=== PATIENT | female | born 1970 | race Caucasian/White ===

== ENCOUNTER → 2018-12-24 09:39 | Outpatient (CLI) | payer OTHER, SELFPAY ==
[2018-12-24 11:04] LABS: Rubella Antibody IgG 31.7 IU/mL (>15)
== END ==
PROVIDERS: Visit Provider Family Medicine
DX: Z11.59 Encounter for screening for other viral diseases (principal)
CPT/HCPCS: 36415; 86735; 86762; 86765

== ENCOUNTER → 2019-08-03 15:13 | Outpatient (CLI) | payer OTHER, SELFPAY ==
[2019-08-03 15:55] LABS: Influenza A and B by PCR Rapid Negative (Negative)
== END ==
PROVIDERS: Family Provider Psychiatry & Neurology Neurology; Visit Provider Physician Assistant
DX: R68.89 Other general symptoms and signs (principal)
CPT/HCPCS: 87400; 87502

== ENCOUNTER → 2019-08-08 11:00 | Outpatient (CLI) | payer OTHER, SELFPAY ==
--- NOTE | 2019-08-08 | DI.RAD.S_ITS ---
PROCEDURE: XR CHEST 2V INDICATIONS: cough TECHNIQUE: 2 views of the chest were acquired. COMPARISON: None. FINDINGS: Surgical changes and devices: None. Lungs and pleura: Lungs are clear. No pleural effusions or pneumothorax. Mediastinum: Mediastinal contours are normal. Heart size is normal. Bones and chest wall: No suspicious bony abnormalities. Soft tissues appear unremarkable. IMPRESSION: Normal for age, source of current cough symptoms is not seen. Dictated by: Matheus Valerio M.D. on 08/08/2019 at 11:15 Approved by: Matheus Valerio M.D. on 08/08/2019 at 11:15
== END ==
PROVIDERS: Family Provider Psychiatry & Neurology Neurology; Visit Provider Student in an Organized Health Care Education/Training Program
DX: R05 Cough (principal)
CPT/HCPCS: 71046

== ENCOUNTER 2019-10-07 12:44 | Day surgery (SDC) | payer OTHER, SELFPAY ==
[2019-10-07] VITALS (7 sets, daily range): BP systolic 95–105; BP diastolic 57–74; PULSE 58–72; RESP 12–18; TEMP 36.2–36.4; O2SAT 99–100; BMI 22.4
--- NOTE | 2019-10-07 | PATH_ITS ---
[facility] Accession Number: [id number] . 01 Material submitted: . PART A: colon - RANDOM ASCENDING BIOPSIES PART B: cecum - CECAL BIOPSY PART C: hepatic flexure - HEPATIC FLEXURE BIOPSY PART D: colon - TRANSVERSE COLON BIOPSIES PART E: splenic flexure - SPLENIC FLEXURE BIOPSY PART F: colon - DESCENDING COLON BIOPSY PART G: sigmoid colon - SIGMOID BIOPSY PART H: rectum - RECTUM BIOPSY . 02 Diagnosis: A-H: Colon, As Designated, Biopsies: Colonic mucosa with no diagnostic abnormality. Negative for active, chronic, and microscopic colitis. Negative for dysplasia and malignancy. . [facility] 10/08/2019 0957 Local . 02 Electronically signed: . Power Oropeza MD, PhD, Pathologist NPI- [id number] . 01 Gross description: . Part A: RANDOM ASCENDING BIOPSIES: Received in formalin are 3 fragment(s) of strange, soft tissue measuring 0.1 x 0.1 x 0.1 cm to 0.3 x 0.3 x 0.2 cm submitted entirely in 1 cassette(s) Part B: CECAL BIOPSY: Received in formalin is 1 fragment(s) of strange, soft tissue measuring 0.4 x 0.3 x 0.2 cm submitted entirely in 1 cassette(s) Part C: HEPATIC FLEXURE BIOPSY: Received in formalin are 2 fragment(s) of strange, soft tissue measuring 0.2 x 0.2 x 0.2 cm to 0.3 x 0.3 x 0.2 cm submitted entirely in 1 cassette(s) Part D: TRANSVERSE COLON BIOPSIES: Received in formalin are 2 fragment(s) of strange, soft tissue measuring 0.1 x 0.1 x 0.1 cm to 0.5 x 0.2 x 0.2 cm submitted entirely in 1 cassette(s) Part E: SPLENIC FLEXURE BIOPSY: Received in formalin is 1 fragment(s) of strange, soft tissue measuring 0.3 x 0.3 x 0.1 cm submitted entirely in 1 cassette(s) Part F: DESCENDING COLON BIOPSY: Received in formalin are multiple fragment(s) of strange, soft tissue measuring 0.1 x 0.1 x 0.1 cm to 0.4 x 0.2 x 0.2 cm submitted entirely in 1 cassette(s) Part G: SIGMOID BIOPSY: Received in formalin are 3 fragment(s) of strange, soft tissue measuring 0.2 x 0.2 x 0.1 cm to 0.3 x 0.3 x 0.3 cm submitted entirely in 1 cassette(s) Part H: RECTUM BIOPSY: Received in formalin is 1 fragment(s) of strange, soft tissue measuring 0.2 x 0.2 x 0.2 cm submitted entirely in 1 cassette(s) /[facility] [place] 10/07/20192 Local . 02 Pathologist provided ICD-10: R19.7 . 02 CPT . 335168, 904310, 711155, 921303, [id number], 511518, [id number], 279695 Performed at: 01 [facility] [address] [id number] MD Jin Lilly MD Phone: [phone] Performed at: 02 [facility] [place] [address] [place], [place] [id number] MD Ashley Medina MD Phone: [phone]
--- NOTE | 2019-10-07 07:28 | P.HP_ITS ---
History of Present Illness History of Present Illness Date Patient Seen: 10/07/19 Chief complaint: [id number] Narrative: 49 Years Old Female comes in today for consideration of a diagnostic colonoscopy. Endorses a 20-year history of diarrhea, I always have loose stools. Has some fecal incontinence with severe coughing. Cousin age 43, dying from stage IV colon cancer. Has another cousin with celiac disease. Stool culture and O&P on 08/09/2019 were negative. Tissue transglutaminase also negative. CBC on 08/08/2019 revealed a normal hemoglobin and hematocrit. Overall health issues have been otherwise stable, including no major cardiac events for at least 6 weeks. Current Medications (verified): 1) Proair Hfa 108 (90 Base) Mcg/act Inhalation Aerosol Solution (Albuterol Sulfate) .... 2 puffs INH every 4 hours as needed, bronchospasm 2) Ativan 0.5 Mg Oral Tablet (Lorazepam) .... Take .5 to 1 tablet by mouth as needed for agitation or anxiety. 3) Keppra Xr 500 Mg Oral Tablet Extended Release 24 Hour (Levetiracetam) .... Take3 tablets twice per day. 4) Lamictal 25 Mg Oral Tablet (Lamotrigine) .... Take 4 tablets two times per day. 5) Topamax 200 Mg Oral Tablet (Topiramate) .... Take one twice daily 6) [employer] Oral Capsule (Lactobacillus-Inulin) .... one daily - probiotic 7) Benicar 20 Mg Oral Tablet (Olmesartan Medoxomil) .... Take one tablet by mouth every day, for blood pressure control. Allergies (verified): 1) Erythromycin (Critical) Past History Reviewed: Past medical, surgical, family and social histories (including risk factors) reviewed and attested, and no changes required Past Medical History: Diarrhea Lesion of cervix, HPV @ age 26 HYPERTENSION Temporal lobe seizures GRAND MAL SEIZURE SLEEP DISTURBANCE Negative sleep apnea work-up 2018 Past Surgical History: Reviewed history from 09/04/2014 and no changes required: Left knee ACL (1988) Family History: Father: Hypertension, Prostate Cancer Mother: hip replacement Siblings: Breast Cancer, Depression Social History: Reviewed history from 08/09/2018 and no changes required: Marital Status: - 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 (1970) - 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, 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 Children: Deven (2004), Mindi (2006) 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, [employer] Education: 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 Life Changes (2013) - Moved to [place], new job, epilepsy diagnosis, with depression Patient History Family & Social History Tobacco & Substance use: Smoking Status Never smoker Meds Home Medications and Allergies Home Medications Medication Instructions Recorded Confirmed Type lorazepam 0 mg PO Q6HP PRN #0 01/27/17 10/07/19 History olmesartan 20 mg tablet 20 mg PO QDAY #30 tab 07/30/18 10/07/19 Rx lamotrigine 100 mg tablet 100 mg PO BID 12/14/18 10/07/19 History levetiracetam 500 mg 500 mg PO BID #0 12/14/18 10/07/19 History tablet,extended release 24 hr topiramate 100 mg tablet 150 mg PO BID #0 tab 12/14/18 10/07/19 History Allergies Allergy/AdvReac Type Severity Reaction Status Date / Time erythromycin base AdvReac Unknown Vomiting Verified 10/07/19 13:30 as a kid Review of Systems Review of Systems ROS Unobtainable: All systems reviewed & are unremarkable except as noted in HPI and below Exam Narrative Exam Narrative: General: Alert and oriented, appearing stated age and in no acute distress. Head: Head normocephalic/atraumatic. Neck: Neck soft and supple, no lymphadenopathy. Lungs: Clear to auscultation bilaterally, no wheezes, rhonchi or rales. Heart: normal rate and regular rhythm, no murmurs, rubs, gallops, or clicks, Abdomen: abdomen soft and non-tender without masses, organomegaly, or abdominal wall hernias, bowel sounds positive. Psych: alert and cooperative; normal mood and affect; normal attention span and concentration; cognition, remote and recent memory appear to be intact, Assessment & Plan Assessment & Plan narrative: Problem # 1: Diarrhea 1. Colonoscopy with random biopsies The nature and character of the procedure as well as anticipated results were discussed. The possibility of not completing the procedure was also discussed. Possible complications including aspiration pneumonia, bleeding, perforation and reaction to medications either for sedation or preparation and missed lesions were discussed. Questions were answered and proceeding to the colonoscopy was elected. Informed consent signed. Problem # 2: Family history of cancer of colon Please see above.
[2019-10-07] MEDS: HYOSCYAMINE 0.125 MG TABLET PO (13:40)
[2019-10-07] MEDS: SODIUM CHLORIDE 0.9% 1,000 ML 200 ML IV (13:40)
--- NOTE | 2019-10-07 13:47 | PM.OP.ENDO ---
Operative Date/Time/Diagnoses Date of procedure: 10/07/19 Time of procedure: 13:47 Pre-op diagnosis: 1. Diarrhea 2. Family history of colon cancer 3. Screening for colon cancer Post-op diagnosis: other (1. Normal colonoscopy ) Procedure & Clinicians Study performed: Colonoscopy Same procedure as scheduled: Yes Indications: 1. Diarrhea 2. Family history of colon cancer 3. Screening for colon cancer Surgeon: Ligia Torres Procedure Notes SCOAP/Timeout: 13:58 Procedure in detail: ENDOSCOPIST: Ligia Torres MD Sedation RN: Ruma Rodriguez RN Sedation start time: 13:58 Sedation end time:14:33 PROCEDURE: Colonoscopy with random biopsies INDICATIONS: 1. Diarrhea 2. Family history of colon cancer 3. Screening for colon cancer MEDICATION: Levsin 0.125 mg sublingual, incremental doses of Versed and fentanyl until appropriate level sedation achieved. ASA CLASS: 2 CECAL WITHDRAWAL TIME: COMPLICATIONS: None. EXTENT OF PROCEDURE: Cecum. QUALITY OF PREP: Good with portions of liquid stool. PROCEDURE: Prior to insertion of the colonoscope, a digital rectal examination was accomplished with circumferential palpation of the distal rectal mucosa without significant findings being noted. The high-definition pediatric colonoscope was passed into the rectum in the usual fashion and advanced over to the cecum without difficulty. The ileocecal valve, appendiceal stoma, and medial wall all could be inspected and no abnormalities were seen. Random biopsies were taken throughout withdrawal. Some areas of tissue were friable after random biopsy, hemoclip placed x2, cecum and descending, excellent hemostasis noted. ASCENDING COLON: As the colonoscope was withdrawn, care was taken to expose and inspect the haustral folds and no abnormalities were seen. HEPATIC FLEXURE: Normal no polyps, diverticula or other abnormalities. TRANSVERSE COLON: Normal no polyps, diverticula or other abnormalities. DESCENDING COLON: Normal no polyps, diverticula or other abnormalities. SIGMOID COLON: Normal no polyps, diverticula or other abnormalities. RECTUM: Normal. J maneuver was produced. There was no significant perianal disease. The J maneuver was broken. The remainder of the rectum was inspected and there was no external hemorrhoid disease. The scope was withdrawn. IMPRESSION: 1. Normal colonoscopy with some areas of friable tissue. PLAN: 1. Follow-up in clinic status post pathology results. The possibility of a missed lesion including a malignancy has been discussed with the patient previously. Potential alarm symptoms have been discussed and should be reported immediately. Scope withdrawal time: 20 Sedation minutes: 35 Specimen(s): other (random, pancolonic) Complications: none Impression: Normal colonoscopy Post-procedure Recommendations: Will call with biopsy results Follow up: weeks (2) Disposition: PACU
[2019-10-07] MEDS: MIDAZOLAM 5 MG/5 ML VIAL IV (14:02)
[2019-10-07] MEDS: fentaNYL 250 MCG/5 ML INJ IV (14:07)
== END 2019-10-07 15:27 | disposition home or self-care (01) ==
PROVIDERS: PCP Student in an Organized Health Care Education/Training Program; Visit Provider Student in an Organized Health Care Education/Training Program
PROC: 0DJD8ZZ Inspection of Lower Intestinal Tract, Via Natural or Artificial Opening Endoscopic (ICD-10-PCS; CPT 45378; principal; 2019-10-07 14:00)
DX: Z12.11 Encounter for screening for malignant neoplasm of colon (principal); R19.7 Diarrhea, unspecified; K57.30 Diverticulosis of large intestine without perforation or abscess without bleeding
CPT/HCPCS: 45382; 45380; J2250; J3010

== ENCOUNTER → 2020-01-20 08:53 | Outpatient (CLI) | payer OTHER, SELFPAY ==
--- NOTE | 2020-01-20 | DI.US.S_ITS ---
PROCEDURE: US PELVIC COMPLETE INDICATIONS: INTRA-ABDOMINAL PAIN AND SWELLING TECHNIQUE: Real-time scanning was performed of the pelvic organs, with image documentation. Additional endovaginal scanning was necessary due to incomplete visualization of the adnexal and endometrial structures by transabdominal scanning. COMPARISON: [facility], US, US PELVIC COMPLETE, 12/14/2018, 11:04. FINDINGS: Transabdominal scanning: Limited scanning through the kidneys shows no hydronephrosis. No pathologic free abdominal or pelvic fluid. Endovaginal scanning: Uterus: Uterus is normal in size at 5.0 x 3.2 x 4.1 cm. The endometrium measures 2 mm in combined thickness. No endometrial mass or fluid is seen. There is a polypoid mass seen in the cervix measures 1.9 x 1.2 x 1.9 cm in size. No internal vascularity is seen. Ovaries: Ovaries are not visualized on this study. No gross adnexal mass. IMPRESSION: 1. Endometrium is normal in thickness. No endometrial mass or fluid. 1.9 cm polypoid mass within the cervix, which was known to patient, suggesting DINKEY SKINNER correlation. No discrete uterine fibroid is seen. 2. No adnexal mass. Bilateral ovaries are not visualized. Dictated by: Nick Deng M.D. on 01/20/2020 at 15:17 Approved by: Nick Deng M.D. on 01/20/2020 at 15:20
== END ==
PROVIDERS: PCP Student in an Organized Health Care Education/Training Program; Referring Provider Student in an Organized Health Care Education/Training Program; Visit Provider Student in an Organized Health Care Education/Training Program
DX: R19.00 Intra-abdominal and pelvic swelling, mass and lump, unspecified site (principal); N88.9 Noninflammatory disorder of cervix uteri, unspecified
CPT/HCPCS: 76830; 76856

== ENCOUNTER → 2020-08-24 07:50 | Outpatient (CLI) | payer OTHER, SELFPAY ==
--- NOTE | 2020-08-24 | DI.US.S_ITS ---
PROCEDURE: US PELVIC COMPLETE INDICATIONS: RIGHT LOWER QUADRANT PAIN TECHNIQUE: Real-time scanning was performed of the pelvic organs, with image documentation. Additional endovaginal scanning was necessary due to incomplete visualization of the adnexal and endometrial structures by transabdominal scanning. COMPARISON: [facility], , US PELVIC COMPLETE, 01/20/2020, 9:33. FINDINGS: Transabdominal scanning: Limited scanning through the kidneys shows no hydronephrosis. No pathologic free abdominal or pelvic fluid. Endovaginal scanning: Uterus: Uterus is normal in size at 6.8 x 3.5 x 4.3 cm. The endometrium measures 1.1 mm in combined thickness. Endocervical polypoid mass redemonstrated similar to prior examination measuring 1.8 x 1.1 x 1.4 cm compared to 1.9 x 1.2 x 1.9 cm on prior examination. Ovaries: Ovaries are normal bilaterally. No adnexal masses seen. IMPRESSION: Presumed endometrial polyp unchanged from prior examination measuring up to 1.8 cm. Continued sonographic surveillance recommended. Dictated by: Trent Rodriguez [facility] Interpreted: Kianna Haddad MD on 08/24/2020 at 10:20 Approved by: Kianna Haddad MD, PhD on 08/24/2020 at 11:44
== END ==
PROVIDERS: PCP Student in an Organized Health Care Education/Training Program; Referring Provider Student in an Organized Health Care Education/Training Program; Visit Provider Student in an Organized Health Care Education/Training Program
DX: R10.31 Right lower quadrant pain (principal)
CPT/HCPCS: 76856

== ENCOUNTER → 2020-09-16 15:20 | Outpatient (CLI) | payer OTHER, SELFPAY ==
--- NOTE | 2020-09-16 15:22 | DI.RAD.S_ITS ---
PROCEDURE: XR SHOULDER RT MIN 2V INDICATIONS: RIGHT SHOULDER LESIONS TECHNIQUE: 3 views of the shoulder were acquired. COMPARISON: [facility], , SHOULDER MINIMUM 2 VIEW LEFT, 07/27/2014, 14:26. FINDINGS: Bones: No acute fractures or dislocations. No suspicious bony lesions. Visualized ribs appear intact. Mild acromioclavicular joint osteoarthrosis. Soft tissues: No suspicious soft tissue calcifications. IMPRESSION: No acute osseous abnormality. If the symptoms persist with conservative management, consider cross sectional imaging such as CT or MRI for further assessment. Dictated by: Ruben Negrete M.D. on 09/16/2020 at 17:13 Approved by: Ruben Negrete M.D. on 09/16/2020 at 17:14
--- NOTE | 2020-09-16 15:22 | DI.RAD.S_ITS ---
PROCEDURE: XR SHOULDER LT MIN 2V INDICATIONS: SHOULDER PAIN TECHNIQUE: 3 views of the shoulder were acquired. COMPARISON: [facility], , SHOULDER MINIMUM 2 VIEW LEFT, 07/27/2014, 14:26. FINDINGS: Bones: No acute fractures or dislocations. No suspicious bony lesions. Visualized ribs appear intact. Soft tissues: No suspicious soft tissue calcifications. IMPRESSION: No acute osseous abnormality. If the symptoms persist with conservative management, consider cross sectional imaging such as CT or MRI for further assessment. Dictated by: Ruben Negrete M.D. on 09/16/2020 at 17:13 Approved by: Ruben Negrete M.D. on 09/16/2020 at 17:13
== END ==
PROVIDERS: PCP Student in an Organized Health Care Education/Training Program; Referring Provider Student in an Organized Health Care Education/Training Program; Visit Provider Student in an Organized Health Care Education/Training Program
DX: M25.512 Pain in left shoulder (principal); M75.81 Other shoulder lesions, right shoulder; M19.011 Primary osteoarthritis, right shoulder
CPT/HCPCS: 73030

== ENCOUNTER → 2020-09-30 15:54 | Outpatient (CLI) | payer OTHER, SELFPAY ==
--- NOTE | 2020-09-30 | DI.MRI.S_ITS ---
PROCEDURE: MR SHOULDER RT WO CON INDICATIONS: BILATERAL SHOULDER PAIN TECHNIQUE: Noncontrast oblique coronal T2 fast spin echo with fat saturation, oblique sagittal T1 spin echo and T2 fast spin echo with fat saturation, axial T1 spin echo and T2 fast spin echo with fat saturation through the shoulder. COMPARISON: [facility], CR, XR SHOULDER RT MIN 2V, 09/16/2020, 15:15. FINDINGS: Image quality: Excellent. Rotator cuff: There is moderate T2 signal elevation within the mid and posterior supraspinatus tendon at the humeral insertion site. There is superimposed moderate grade bursal surface tearing of the posterior supraspinatus and anterior infraspinatus tendon at the musculotendinous junction measuring roughly 15 mm anteroposterior. The supraspinatus, infraspinatus, and subscapularis tendons otherwise appear intact throughout. Sagittal images demonstrate no muscle atrophy. Bones and bursae: No bone marrow contusions or fractures. Mild acromioclavicular joint degeneration. The acromion demonstrates conventional anatomy, without an os acromiale. No pathologic subacromial-subdeltoid or subcoracoid bursal fluid is present. Capsule and soft tissues: In the absence of intra-articular contrast, the labrum and glenohumeral ligaments appear intact. The long head of the biceps tendon demonstrates normal location and morphology. The rotator interval appears normal, without fibrosis. The coracohumeral ligament is normal in thickness. IMPRESSION: 1. Partial-thickness tearing of the supraspinatus and infraspinatus tendons. No full-thickness rotator cuff tear. 2. Acromioclavicular joint osteoarthritis. Dictated by: Oliver Montelongo M.D. on 09/30/2020 at 16:45 Approved by: Oliver Montelongo M.D. on 09/30/2020 at 16:48
--- NOTE | 2020-09-30 | DI.MRI.S_ITS ---
PROCEDURE: MR SHOULDER LT WO CON INDICATIONS: BILATERAL SHOULDER PAIN TECHNIQUE: Noncontrast oblique coronal T2 fast spin echo with fat saturation, oblique sagittal T1 spin echo and T2 fast spin echo with fat saturation, axial T1 spin echo and T2 fast spin echo with fat saturation through the shoulder. COMPARISON: [facility], MR, MR SHOULDER RT WO CON, 09/30/2020, 16:04. FINDINGS: Image quality: Excellent. Rotator cuff: Tendinosis and low to moderate grade articular and bursal surface partial thickness tear involving distal supraspinatus at its insertion on humeral head is seen extending to musculotendinous junction. Distal infraspinatus and subscapularis tendinosis is also seen. No full-thickness rotator cuff tendon rupture. Sagittal images demonstrate mild supraspinatus muscle atrophy. Bones and bursae: No bone marrow contusions or fractures. Mild to moderate acromioclavicular joint osteoarthritic changes are seen with downward osteophyte formation depressing the musculotendinous junction of supraspinatus. No pathologic subacromial-subdeltoid or subcoracoid bursal fluid is present. Capsule and soft tissues: In the absence of intra-articular contrast, there is suggestion of inferior labral tear from 5-7 o'clock position. The glenohumeral ligaments appear intact. The long head of the biceps tendon demonstrates normal location and morphology. The rotator interval appears normal, without fibrosis. The coracohumeral ligament is normal in thickness. IMPRESSION: 1. Tendinosis and low to moderate grade articular and bursal surface partial thickness tear involving distal supraspinatus extending to musculotendinous junction. Distal infraspinatus and subscapularis tendinosis. No full-thickness rotator cuff tendon rupture. Mild supraspinatus muscle atrophy. 2. Mild to moderate acromioclavicular joint osteoarthritis. 3. Suggestion of inferior labral tear at 5 to 7 o'clock position. Dictated by: Nick Deng M.D. on 09/30/2020 at 17:09 Approved by: Nick Deng M.D. on 09/30/2020 at 17:17
== END ==
PROVIDERS: PCP Student in an Organized Health Care Education/Training Program; Referring Provider Student in an Organized Health Care Education/Training Program; Visit Provider Student in an Organized Health Care Education/Training Program
DX: M25.511 Pain in right shoulder (principal); M25.512 Pain in left shoulder; M75.112 Incomplete rotator cuff tear or rupture of left shoulder, not specified as traumatic; M75.111 Incomplete rotator cuff tear or rupture of right shoulder, not specified as traumatic; M19.011 Primary osteoarthritis, right shoulder; M19.012 Primary osteoarthritis, left shoulder
CPT/HCPCS: 73221

== ENCOUNTER → 2021-02-24 08:03 | Outpatient (CLI) | payer OTHER, SELFPAY ==
[2021-02-24] MEDS: COVID-19 VACC #1, MRNA(MOD) 100 MCG/0.5 ML VIAL IM (08:17)
== END ==
PROVIDERS: PCP Student in an Organized Health Care Education/Training Program; Visit Provider Internal Medicine
DX: Z23 Encounter for immunization (principal)
CPT/HCPCS: 0011A; 91301

== ENCOUNTER → 2021-03-24 08:03 | Outpatient (CLI) | payer OTHER, SELFPAY ==
[2021-03-24] MEDS: COVID-19 VACC #2, MRNA(MOD) 100 MCG/0.5 ML VIAL IM (08:09)
== END ==
PROVIDERS: PCP Student in an Organized Health Care Education/Training Program; Visit Provider Internal Medicine
DX: Z23 Encounter for immunization (principal)
CPT/HCPCS: 0012A; 91301

== ENCOUNTER → 2021-06-06 11:37 | Outpatient (CLI) | payer OTHER, SELFPAY ==
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
== END ==
PROVIDERS: PCP Student in an Organized Health Care Education/Training Program; Referring Provider Physician Assistant; Visit Provider Physician Assistant
DX: R07.81 Pleurodynia (principal)
CPT/HCPCS: 71101

== ENCOUNTER → 2022-03-11 12:20 | Outpatient (CLI) | payer OTHER, SELFPAY ==
[2022-03-11 13:20] LABS: Monotest Negative (Negative)
== END ==
PROVIDERS: PCP Student in an Organized Health Care Education/Training Program; Referring Provider Nurse Practitioner Family; Visit Provider Nurse Practitioner Family
DX: R50.9 Fever, unspecified (principal)
CPT/HCPCS: 36415; 86318

== ENCOUNTER 2022-07-12 13:45 | Outpatient (RCR) | payer OTHER, SELFPAY ==
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
--- NOTE | 2022-07-05 20:44 | PT.OPPOC ---
Physical, Occupational & Speech Therapy At [facility] Current Diagnoses Benign paroxysmal vertigo, bilateral (07/05/22) Visit Care Team Role Provider Type Wyatt Villavicencio MD Primary Care Provider Physician Specialty: Family Practice Address: [address] [place] [address], [id number] Email: [email or web address] Ligia Torres MD Attending Provider Physician Referring Provider Specialty: [facility] Address: [address] [place] [address], [id number] Email: [email or web address] Plan Of Care PT-OP-T Assessment and Plan Start: 07/04/22 15:16 Freq: Status: Active Protocol: Document 07/05/22 09:45 AMB (Rec: 07/07/22 20:43 AMB [id number]) Physical Therapy Assessment Rehab Potential Rehabilitation Potential Good Evaluation Complexity Number of Personal Factors/Comorbidities 1-2 Number of Body Systems Impaired 1-2 Clinical Presentation at Evaluation Stable Impairments Impairments Vestibular Goals Positive Cullen-Hallpike Short Term Goal (STG) Germania will show no dizziness or nystagmus with [place] Hallpike position. STG Duration 4 weeks Dizziness Short Term Goal (STG) Germania will perform all bed mobility without dizziness. 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 LTG Duration 6 weeks Assessment Summary Assessment Germania attends physical therapy with positive R [place]-Hallpike and torsional upbeating nystagmus with first repetition, but not second. She will benefit from continued physical therapy to continue to treat her BPPV as needed. Physical Therapy Plan Frequency and Duration Frequency of Treatment 2x/Week Duration of Treatment 6 weeks Plan of Care Start Date 07/05/22 Plan of Care End Date 08/16/22 Therapeutic Interventions Therapeutic Interventions Balance Training,Neuromuscular Re-education,Therapeutic Activities,Therapeutic Exercises,Vestibular Rehabilitation Next Visit Focus/Plan Next Note Type Treatment Note Next Visit Plan Recheck R Cullen-Hallpike Plan of Care Dates Plan of Care Start Date 07/05/22 Plan of Care End Date 08/16/22 Electronically Signed by: Annamarie Garcia, PT 07/07/22 2044 If you are in agreement with this Plan of Care, please return a signed and dated copy. I have reviewed this Plan of Care and certify that the skilled therapy services above are required to meet the patient?s needs. Physician Signature Date Printed Name and Credentials Clinical Instructor Signature Printed Name and Credentials
--- NOTE | 2022-07-12 14:30 | PT.OTN ---
Current Diagnoses Benign paroxysmal vertigo, bilateral (07/12/22) Physical Therapy Treatment Note PT-OP-A Visit Information Start: 07/04/22 15:16 Freq: Status: Active Protocol: Document 07/12/22 13:48 AMB (Rec: 07/12/22 14:20 AMB [id number]) Out-Patient Physical Therapy Visit Information Visit Information Visit Type Treatment Note Visit Start Time 13:45 Visit Stop Time 14:10 Total Visit Minutes 25 Visit Number 2 PT-OP-B Current Condition Start: 07/04/22 15:16 Freq: Status: Active Protocol: Document 07/05/22 09:43 AMB (Rec: 07/05/22 10:41 AMB [id number]) Current Condition History of Current Condition Onset Date January Current Complaints dizziness History of Current Condition Got a fever in january, has tried [email or web address] videos. At night feels fluid in ears, more so with sinus infection. The same. 10-30 seconds of dizziness. Spinning. Motion sickness- on the boat. Diagnosed with epilepsy, last seizure in 2014. Seeing ENT in a couple weeks. PT-OP-C Subjective Start: 07/04/22 15:16 Freq: Status: Active Protocol: Document 07/12/22 13:48 AMB (Rec: 07/12/22 14:20 AMB [id number]) OP-PT Subjective Patient Comments Patient Comments Germania reports she has not had any dizziness. PT-OP-O Vestibular Start: 07/04/22 15:16 Freq: Status: Active Protocol: Document 07/05/22 09:43 AMB (Rec: 07/05/22 10:41 AMB [id number]) Vestibular Assessment Visual Testing Smooth Pursuits Horizontal WNL Smooth Pursuits Vertical WNL Positional Testing [place]-Hallpike Positive Right,Upbeating,< 60 Seconds Comments Vestibular Comments Positive with first rep, negative with second of the Liliana for R Canalithiasis PT-OP-Q Treatments Start: 07/04/22 15:16 Freq: Status: Active Protocol: Document 07/12/22 13:48 AMB (Rec: 07/12/22 14:20 AMB [id number]) Neuro Re-Education Treatment Other Activities recheck positional testing Comments r/l Bov[place]-hallpike, r/l supine roll, educated pt in return to head turn activities. PT-OP-T Assessment and Plan Start: 07/04/22 15:16 Freq: Status: Active Protocol: Document 07/12/22 13:48 AMB (Rec: 07/12/22 14:20 AMB [id number]) Physical Therapy Assessment Goals Positive [place]-Hallpike Short Term Goal (STG) Germania will show no dizziness or nystagmus with Cullen Hallpike position. STG Duration MET Dizziness Short Term Goal (STG) Germania will perform all bed mobility without dizziness. 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 LTG Duration MET Assessment Summary Assessment Germania did not show any signs of BPPV at her second visit, she has returned [place] hiking[place], reports she can get up at night without reaching for the reese and is ready for discharge, understands it is possible to get BPPV again at a later date and she would need a new referral at that time. Physical Therapy Plan Discharge Physical Therapy Discharge Reasons Goals Met
--- NOTE | 2022-07-12 14:30 | PT.OPDS ---
Current Diagnoses Benign paroxysmal vertigo, bilateral (07/12/22) Visit Care Team Role Provider Type Wyatt Villavicencio MD Primary Care Provider Physician Specialty: [facility] Address: [address] [place], [address] Email: [email or web address] Ligia Torres MD Attending Provider Physician Referring Provider Specialty: [facility] Address: [facility] [place], [address] Email: [email or web address] Visit Number Visit Number 2 Discharge Summary PT-OP-B Current Condition Start: 07/04/22 15:16 Freq: Status: Active Protocol: Document 07/05/22 09:43 AMB (Rec: 07/05/22 10:41 AMB [id number]) Current Condition History of Current Condition Onset Date January Current Complaints dizziness History of Current Condition Got a fever in january, has tried [employer] videos. At night feels fluid in ears, more so with sinus infection. The same. 10-30 seconds of dizziness. Spinning. Motion sickness- on the boat. Diagnosed with epilepsy, last seizure in 2014. Seeing ENT in a couple weeks. PT-OP-C Subjective Start: 07/04/22 15:16 Freq: Status: Active Protocol: Document 07/12/22 13:48 AMB (Rec: 07/12/22 14:20 AMB [id number]) OP-PT Subjective Patient Comments Patient Comments Germania reports she has not had any dizziness. PT-OP-O Vestibular Start: 07/04/22 15:16 Freq: Status: Active Protocol: Document 07/05/22 09:43 AMB (Rec: 07/05/22 10:41 AMB [id number]) Vestibular Assessment Visual Testing Smooth Pursuits Horizontal WNL Smooth Pursuits Vertical WNL Positional Testing [place]-Hallpike Positive Right,Upbeating,< 60 Seconds Comments Vestibular Comments Positive with first rep, negative with second of the Liliana for R Canalithiasis PT-OP-T Assessment and Plan Start: 07/04/22 15:16 Freq: Status: Active Protocol: Document 07/12/22 13:48 AMB (Rec: 08/23/22 14:20 AMB [id number]) Physical Therapy Assessment Goals Positive [place]-Hallpike Short Term Goal (STG) Germania will show no dizziness or nystagmus with [place] Hallpike position. STG Duration MET Dizziness Short Term Goal (STG) Germania will perform all bed mobility without dizziness. 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 LTG Duration MET Assessment Summary Assessment Germania did not show any signs of BPPV at her second visit, she has returned to hiking, [place], reports she can get up at night without reaching for the reese and is ready for discharge, understands it is possible to get BPPV again at a later date and she would need a new referral at that time. Physical Therapy Plan Discharge Physical Therapy Discharge Reasons Goals Met
== END 2022-07-14 09:28 ==
LOC: PHYS 13:45
PROVIDERS: PCP Family Medicine; Referring Provider Student in an Organized Health Care Education/Training Program; Visit Provider Student in an Organized Health Care Education/Training Program
DX: H81.13 Benign paroxysmal vertigo, bilateral (principal)
CPT/HCPCS: 97112; 97161

== ENCOUNTER → 2023-01-20 14:20 | Outpatient (CLI) | payer OTHER, SELFPAY ==
--- NOTE | 2023-01-20 | DI.MG.S_ITS ---
BILATERAL DIGITAL SCREENING MAMMOGRAM 3D/2D WITH CAD: 01/20/2023 CLINICAL: Routine screening. Family history of breast cancer. Comparison is made to exam dated: 08/23/2017 mammogram - [facility]. Both breasts are heterogeneously dense, which may obscure small masses (category c / 51-75% glandular tissue). Current study was also evaluated with a Computer Aided Detection (CAD) system. There is a biopsy clip in the right breast. No significant masses, calcifications, or other findings are seen in either breast. There has been no significant interval change. IMPRESSION: NEGATIVE There is no mammographic evidence of malignancy. A 1 year screening mammogram is recommended. Based on Tyrer-Cuzick model (a risk assessment model), the patient's lifetime risk is 28.1% and her 10 year risk is 7.9%. If a patient has an elevated risk, a more comprehensive evaluation should be considered and/or a referral to a genetic counselor. The [place] [employer], [place] [employer], and NCCN Guidelines advise the consideration of Breast MRI as an adjunct to screening mammography in patients whose Lifetime risk to develop breast cancer is 20% or higher. This exam was interpreted at Station ID: [id number]. NOTE: For mammograms, a report in lay terms will be sent to the patient. Approximately 15% of breast malignancies will not be visualized mammographically. In the management of a palpable breast mass, a negative mammogram must not discourage biopsy of a clinically suspicious lesion. Electronically Signed By: Ilya novak/jen:01/20/2023 16:21:52 letter sent: Normal Exam ACR BI-RADS Category 1: Negative [id number]
== END ==
PROVIDERS: PCP Family Medicine; Referring Provider Family Medicine; Visit Provider Family Medicine
DX: Z12.31 Encounter for screening mammogram for malignant neoplasm of breast (principal); Z80.3 Family history of malignant neoplasm of breast
CPT/HCPCS: 77063; 77067

== ENCOUNTER → 2023-04-12 09:50 | Outpatient (CLI) | payer OTHER, SELFPAY ==
--- NOTE | 2023-04-12 09:51 | DI.RAD.S_ITS ---
PROCEDURE: XR FOOT RT MIN 3V INDICATIONS: foot pain TECHNIQUE: 3 views of the foot were acquired. COMPARISON: None. FINDINGS: Bones: No fractures or dislocations. No suspicious bony lesions. Soft tissues: No tibiotalar joint effusion. Achilles tendon appears normal. IMPRESSION: No evidence acute bony abnormality Dictated by: Cesar Yang M.D. on 04/12/2023 at 11:47 Approved by: Cesar Yang M.D. on 04/12/2023 at 11:47
== END ==
PROVIDERS: PCP Family Medicine; Referring Provider Nurse Practitioner Family; Visit Provider Nurse Practitioner Family
DX: M79.671 Pain in right foot (principal)
CPT/HCPCS: 73630

== ENCOUNTER → 2023-06-05 16:46 | Outpatient (CLI) | payer OTHER, SELFPAY ==
--- NOTE | 2023-06-05 16:50 | DI.RAD.S_ITS ---
PROCEDURE: XR LUMBAR SPINE 2-3V INDICATIONS: Pain in left shoulder TECHNIQUE: 3 views of the lumbar spine were acquired. COMPARISON: None. FINDINGS: Bones: 5 [id number] vertebrae are present. There is normal bony alignment. No vertebral body compression fractures. No suspicious bony lesions. Disc space narrowing degenerative endplate changes are most prominent at the L5-S1 level. There is mild facet hypertrophy. Soft tissues: Overlying bowel gas pattern is normal. Numerous calcifications are seen projecting over the kidneys bilaterally. IMPRESSION: 1. Mild multilevel spondylosis is most notable at the L5-S1 level. 2. Bilateral renal calcifications, suspicious for medullary nephrocalcinosis. Approved by: Ruben Negrete M.D. on 06/06/2023 at 13:01
--- NOTE | 2023-06-05 16:50 | DI.RAD.S_ITS ---
PROCEDURE: XR CERVICAL SPINE 2V OR 3V INDICATIONS: Pain in left shoulder TECHNIQUE: Three views of the cervical spine were acquired. COMPARISON: None. FINDINGS: Bones: No acute fractures or dislocations to the C7 level. The lateral masses of C1 appear intact on the odontoid view. No suspicious bony lesions. Mild disc space narrowing degenerative endplate changes. Mild multilevel uncovertebral joint and facet hypertrophy. Soft tissues: No prevertebral soft tissue swelling. IMPRESSION: Mild multilevel spondylosis. Approved by: Ruben Negrete M.D. on 06/06/2023 at 12:59
== END ==
PROVIDERS: PCP Family Medicine; Referring Provider Family Medicine; Visit Provider Family Medicine
DX: M47.812 Spondylosis without myelopathy or radiculopathy, cervical region (principal); M47.816 Spondylosis without myelopathy or radiculopathy, lumbar region; M47.817 Spondylosis without myelopathy or radiculopathy, lumbosacral region; N28.89 Other specified disorders of kidney and ureter; M54.2 Cervicalgia; M25.512 Pain in left shoulder; M54.9 Dorsalgia, unspecified
CPT/HCPCS: 72040; 72100

== ENCOUNTER → 2023-06-20 17:41 | Outpatient (CLI) | payer OTHER, SELFPAY ==
--- NOTE | 2023-06-20 17:47 | DI.RAD.S_ITS ---
PROCEDURE: XR THORACIC SPINE 3V INDICATIONS: LEFT SHOULDER PAIN TECHNIQUE: 3 views of the thoracic spine were acquired. COMPARISON: [facility], CR, XR CHEST 2V, 08/08/2019, 11:01. FINDINGS: Bones: No fractures or dislocations. No suspicious bony lesions. 12 pairs of ribs are noted, and appear intact where visualized. Mild dextrocurvature centered at the lower thoracic level. Mild multilevel disc height loss with endplate sclerosis and spurring. Soft tissues: No paravertebral stripe thickening. IMPRESSION: Mild multilevel disc degeneration and minimal dextrocurvature. Dictated by: Trent Rodriguez [facility] Interpreted: Jacqueline Lagunas MD on 06/20/2023 at 20:32 Transcribed by: LEILA on 06/20/2023 at 20:33 Approved by: Jacqueline Lagunas M.D. on 06/27/2023 at 8:09
== END ==
PROVIDERS: PCP Family Medicine; Referring Provider Family Medicine; Visit Provider Family Medicine
DX: M51.34 Other intervertebral disc degeneration, thoracic region (principal); M25.512 Pain in left shoulder; M54.2 Cervicalgia; M54.9 Dorsalgia, unspecified; G56.90 Unspecified mononeuropathy of unspecified upper limb
CPT/HCPCS: 72072

== ENCOUNTER 2024-09-18 12:36 | Emergency (ER) | payer OTHER, SELFPAY ==
[2024-09-18] VITALS (10 sets, daily range): BP systolic 103–156; BP diastolic 69–107; PULSE 64–79; RESP 12–20; TEMP 36.9; O2SAT 97–100; BMI 23.7
--- NOTE | 2024-09-18 12:58 | DI.RAD.S_ITS ---
PROCEDURE: XR CHEST 1V INDICATIONS: Shortness of breath TECHNIQUE: One view of the chest was acquired. COMPARISON: None. FINDINGS: Surgical changes and devices: None. Lungs and pleura: Lungs are clear. No pleural effusions or pneumothorax. Mediastinum: Mediastinal contours appear normal. Heart size is normal. Bones and chest wall: No suspicious bony lesions. Overlying soft tissues appear unremarkable. IMPRESSION: No acute cardiopulmonary abnormality is seen. Approved by: Ruben Negrete M.D. on 09/18/2024 at 13:13
--- NOTE | 2024-09-18 13:14 | EKG_ITS ---
[facility] [address] [place] [address] Test Date: 2024-09-18 Pat Name: Germania Islas Department: 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
[2024-09-18 13:26] LABS: Add Manual Diff / Slide Review NO; Basophils Absolute Auto 100 /uL (0-100); Basophils Percent Auto 1.3 % (0-2); Eosinophils Absolute Auto 200 /uL (0-450); Eosinophils Percent Auto 2.2 % (2-4); Hematocrit 42.8 % (36-46); Hemoglobin 14.1 g/dL (12.0-16.0); Lymphocytes Absolute Auto 2100 /uL (1100-4500); Lymphocytes Percent Auto 27.4 % (25-40); Mean Corpuscular HGB Conc 33.1 % (30-36); Mean Corpuscular Hemoglobin 31.9 PG (26-34); Mean Corpuscular Volume 96.5 fL (80-100); Monocytes Absolute Auto 800 /uL (0-900); Monocytes Percent Auto 9.7 % (3-14); Neutrophils Absolute Auto 4600 /uL (1500-7000); Neutrophils Percent Auto 59.4 % (50-75); Platelet Count 207 X10^3/uL (150-400); Red Blood Cell Count 4.43 X10^6/uL (4.0-5.2); White Blood Cell Count 7.8 X10^3/uL (4.5-11.0)
[2024-09-18 13:35] LABS: Prothrombin Time 11.7 SECONDS (9.4-12.5)
[2024-09-18 13:42] LABS: Alanine Aminotransferase 20 IU/L (<35); Albumin 4.5 g/dL (3.5-5.0); Albumin Globulin Ratio 1.7 (1.0-2.8); Alkaline Phosphatase 82 U/L (38-126); Aspartate Aminotransferase 22 IU/L (14-36); BUN Creatinine Ratio 13.8 (6-22); Bilirubin Total 0.4 mg/dL (0.2-1.3); Blood Urea Nitrogen 15 mg/dL (7-17); Calcium 9.6 mg/dL (8.4-10.2); Carbon Dioxide 22 mmol/L (22-32); Chloride 109 mmol/L (98-107); Estimated Glomerular Filt Rate > 60 mL/min (>60); Globulin 2.7 g/dL (1.7-4.1); Glucose 88 mg/dL (70-100); HEMOLYSIS < 15 (0-50); Lactate (Lactic Acid) 0.8 mmol/L (0.7-2.1); Potassium 3.8 mmol/L (3.4-5.1); Sodium 140 mmol/L (137-145); Total Protein 7.2 g/dL (6.3-8.2)
[2024-09-18 13:54] LABS: NT-proBNP (BNP-Adult 18+) 23 pg/mL (<125); Troponin I < 0.012 ng/mL (0.01-0.034)
--- NOTE | 2024-09-18 15:39 | ED.GENADULT ---
HPI - General Adult General Chief complaint: Shortness of Breath/Dyspnea Stated complaint: cardiac workup - sent by [facility] Time Seen by Provider: 09/18/24 15:36 Source: patient, RN notes reviewed and old records reviewed Mode of arrival: Ambulatory Limitations: no limitations History of Present Illness HPI narrative: 54-year-old female history of seizure disorder recent diagnosis of hypertension with complaint of increased shortness of breath particularly with exertion, fatigue, chest discomfort some orthopnea. Patient states no fevers or chills. Has not some nasal congestion and cold cough symptoms recently but states her other symptoms started before this. She states no nausea or vomiting, no issues with bowel movements no issues with urination, no new swelling of extremities. Denies any urinary symptoms. Does have a history of seizure disorder has been well-controlled she was on Topamax, lamotrigine was on Keppra what was changed to lacosamide recently for side effects. She states she also was found to have hypertension on follow up for a foot fracture and was started on olmesartan in the last several months states no other daily medications no recent seizures. Surgical history includes appendectomy, ACL repair remotely. No tobacco, 5-7 alcoholic drinks weekly, no recreational drugs. Allergy to erythromycin. Primary care physician is Dr. Villavicencio. She follows with Neurology through [facility] with Dr. Olguin. Related Data Home Medications Medication Instructions Recorded Confirmed lorazepam 0.5 mg tablet 0 mg PO Q6HP PRN Seizure Activity 01/27/17 09/13/24 ##0 lamotrigine 100 mg tablet 100 mg PO BID 12/14/18 09/13/24 lacosamide 200 mg tablet mg PO 09/18/24 09/18/24 topiramate 50 mg tablet mg PO 09/18/24 09/18/24 Previous Rx's Medication Instructions Recorded olmesartan 20 mg tablet (Benicar) 20 mg PO QDAY #30 tabs 07/30/18 estradiol 0.01% (0.1 mg/gram) 1 g vaginal DAILY #42.5 grams 09/13/24 vaginal cream (Estrace) Allergies Allergy/AdvReac Type Severity Reaction Status Date / Time erythromycin base AdvReac Unknown Vomiting Verified 09/13/24 10:55 as a kid Review of Systems Review of Systems ROS Unobtainable: All systems reviewed & are unremarkable except as noted in HPI and below Patient History Medical History Genitourinary syndrome of menopause Menopausal symptoms Rib pain on left side Surgical History Status post appendectomy Status post knee surgery Family History Father Age: 78 Hypertension Grandfather Heart disease Chronic bronchitis, unspecified chronic bronchitis type Sister Age: 47 Cancer Bipolar 1 disorder Social History household members: spouse Smoking Status: Never smoker Smoking Status: Never smoker alcohol intake frequency: a few times a week Substance Use Type: does not use Exam Narrative Exam Narrative: GENERAL: Alert and oriented x three, well-appearing female in mild distress HEENT: Head normocephalic, atraumatic, EOMI, pupils reactive, face symmetric,, mild nasal congestion moist mucous membranes NECK: Supple, full range of motion CARDIOVASCULAR: Regular rate and rhythm without murmurs, rubs or gallops. No JVD. No edema. RESPIRATORY: Breath sounds equal bilaterally, no wheezes rales or rhonchi. No tachypnea accessory muscle use ABDOMEN: Soft, nontender. Normoactive bowel sounds all 4 quadrants. No guarding or rebound, rigidity, no mass : No CVA tenderness EXTREMITIES: Normal range of motion, no clubbing or edema. Neurovascularly intact NEUROLOGICAL: Cranial nerves II through XII grossly intact. Moving all extremities SKIN: Warm, dry, no petechiae, no rashes or lesions. Initial Vital Signs Initial Vital Signs: Vital Signs Temperature 98.5 F 09/18/24 12:51 Pulse Rate 79 09/18/24 12:51 Respiratory Rate 20 09/18/24 12:51 Blood Pressure 148/93 H 09/18/24 12:51 Pulse Oximetry 99 09/18/24 12:51 Oxygen Delivery Method Room Air 09/18/24 12:51 Scores HEART Score Heart Score history: Moderately Suspicious Heart Score EKG: Normal Heart Score Age: 45-64 years old Heart Score risk factors: No known risk factors Heart Score troponin: < or = to normal limit Heart Score Total: 2 Course Orders Ordered: ED Orders 09/18/24 12:58 XR chest 1V Stat EKG-12 Lead Stat Measure peak expiratory flow ONCE RT Consult Eval and Treat NOW 09/18/24 13:20 Complete Blood Count AUTO DIFF Stat Comprehensive Metabolic Panel Stat Lactate (Lactic Acid) Stat NT-proBNP (BNP-Adult 18+) Stat Prothrombin Time INR Stat Troponin I Stat 09/18/24 15:58 Trop I [Troponin I] Stat Vital Signs Vital signs: Vital Signs - 8 hr 09/18/24 12:51 09/18/24 13:06 09/18/24 13:08 Temperature 98.5 F Pulse Rate 79 67 65 Respiratory Rate 20 19 Blood Pressure 148/93 H Pulse Oximetry 99 100 100 Oxygen Delivery Method Room Air 09/18/24 13:08 09/18/24 13:30 09/18/24 13:30 Temperature Pulse Rate 73 Respiratory Rate Blood Pressure 134/86 156/107 H Pulse Oximetry 98 Oxygen Delivery Method 09/18/24 14:00 09/18/24 14:00 09/18/24 14:30 Temperature Pulse Rate 66 64 Respiratory Rate 16 12 Blood Pressure 113/69 Pulse Oximetry 97 97 Oxygen Delivery Method 09/18/24 14:30 09/18/24 15:00 09/18/24 15:00 Temperature Pulse Rate 67 Respiratory Rate 14 Blood Pressure 119/80 115/82 Pulse Oximetry 97 Oxygen Delivery Method 09/18/24 15:30 09/18/24 15:30 09/18/24 16:00 Temperature Pulse Rate 64 64 Respiratory Rate 14 15 Blood Pressure 118/81 Pulse Oximetry 98 97 Oxygen Delivery Method 09/18/24 16:00 09/18/24 16:30 09/18/24 16:30 Temperature Pulse Rate 65 Respiratory Rate 12 Blood Pressure 103/69 121/76 Pulse Oximetry 98 Oxygen Delivery Method Medical Decision Making Lab Data 09/18/24 13:20 09/18/24 13:20 Labs: Lab Results 09/18/24 09/18/24 Range/Units 13:20 15:59 WBC 7.8 (4.5-11.0) X10^3/uL RBC 4.43 (4.0-5.2) X10^6/uL Hgb 14.1 (12.0-16.0) g/dL Hct 42.8 (36-46) % MCV 96.5 (80-100) fL MCH 31.9 (26-34) PG MCHC 33.1 (30-36) % RDW 13.0 (11.6-14.8) % Plt Count 207 (150-400) X10^3/uL Neut % (Auto) 59.4 (50-75) % Lymph % (Auto) 27.4 (25-40) % [place] % (Auto) 9.7 (3-14) % Eos % (Auto) 2.2 (2-4) % Baso % (Auto) 1.3 (0-2) % Neut # (Auto) 4600 (3853-0126) /uL Lymph # (Auto) 2100 (4456-3320) /uL [place] # (Auto) 800 (0-900) /uL Eos # (Auto) 200 (0-450) /uL Baso # (Auto) 100 (0-100) /uL PT 11.7 (9.4-12.5) SECONDS INR 1.0 (0.9-1.3) Sodium 140 (137-145) mmol/L Potassium 3.8 (3.4-5.1) mmol/L Chloride 109 H (98-107) mmol/L Carbon Dioxide 22 (22-32) mmol/L BUN 15 (7-17) mg/dL Creatinine 1.09 H (0.52-1.04) mg/dL Estimated GFR > 60 (>60) mL/min BUN/Creatinine Ratio 13.8 (6-22) Glucose 88 (70-100) mg/dL Lactate 0.8 (0.7-2.1) mmol/L Calcium 9.6 (8.4-10.2) mg/dL Total Bilirubin 0.4 (0.2-1.3) mg/dL AST 22 (14-36) IU/L ALT 20 (<35) IU/L Alkaline Phosphatase 82 (38-126) U/L Troponin I < 0.012 < 0.012 (0.01-0.034) ng/mL NT-Pro-B Natriuret Pep 23 (<125) pg/mL Total Protein 7.2 (6.3-8.2) g/dL Albumin 4.5 (3.5-5.0) g/dL Globulin 2.7 (1.7-4.1) g/dL Albumin/Globulin Ratio 1.7 (1.0-2.8) Imaging Data Chest x-ray: Radiologist's Impression: Close Chest X-Ray (Signed) Ruben Negrete - 09/18/24 Thoracic Spine X-Ray (Signed) Jennifer Lagunase - 06/20/23 Lumbar Spine X-Ray (Signed) Ruben Negrete - 06/05/23 Cervical Spine X-Ray (Signed) Ruben Negrete - 06/05/23 Foot X-Ray (Signed) TreyCesar - 04/12/23 Mammogram Screening (Signed) Roshan Mcmillann - 01/20/23 Ribs X-Ray (Signed) Shadi Trevizo - 06/06/21 Shoulder MRI (Signed) Nick Deng - 09/30/20 Shoulder MRI (Signed) Oliver Montelongo - 09/30/20 Shoulder X-Ray (Signed) Ruben Negrete - 09/16/20 Shoulder X-Ray (Signed) Ruben Negrete - 09/16/20 Pelvis Ultrasound (Signed) Kianna Haddad - 08/24/20 Pelvis Ultrasound (Signed) Nick Deng - 01/20/20 Telemetry Strips 10/07/19 Chest X-Ray (Signed) Matheus Valerio - 08/08/19 [place] [address] XRay Report Signed Patient: Germania Islas MR#: [id number] : 1970 Acct:[id number] Age/Sex: 54 / F Date of Service: 09/18/24 Loc: ED Accession Number: [id number] Procedure: XR chest 1V Ordering Provider: Kim Charlton D.O. PROCEDURE: XR CHEST 1V INDICATIONS: Shortness of breath TECHNIQUE: One view of the chest was acquired. COMPARISON: None. FINDINGS: Surgical changes and devices: None. Lungs and pleura: Lungs are clear. No pleural effusions or pneumothorax. Mediastinum: Mediastinal contours appear normal. Heart size is normal. Bones and chest wall: No suspicious bony lesions. Overlying soft tissues appear unremarkable. IMPRESSION: No acute cardiopulmonary abnormality is seen. Approved by: Ruben Negrete M.D. on 09/18/2024 at 13:13 ECG Data Attestation: I personally reviewed and interpreted this ECG as follows: Prior ECG tracings: not available for review Interpretation: Sinus rhythm nonspecific change rate of 72 [place] 186 QRS 80 QTC of 416. No prior for comparison. MDM Narrative Medical decision making narrative: 54-year-old female who went to the walk-in clinic for concern for pneumonia does have recent upper respiratory infection, workup is overall reassuring but she notes some chest discomfort and shortness of breath with some orthopnea which she describes going on a little bit longer than she has had respiratory symptoms with her URI. Was referred to for cardiac workup from the walk-in clinic. White count of 7.8 hemoglobin of 14 platelets of 207, INR is 1, sodium is 140 potassium 3.8 chloride 109 CO2 is 22 BUN 15 creatinine 1.09, LFTs are negative troponins less than 0.012 with a BNP of 23. Repeat troponin is negative. Chest x-ray is negative for acute change EKG shows normal rhythm, rate of 72 [place] 186 QRS 80 QTC of 416, no acute ST elevation or depression. Heart score is 2 Discharge Plan Departure Patient Disposition: Home Clinical Impression: Shortness of Breath Activity Restrictions/Additional Instructions: Follow up with your physician for recheck. If you are continuing to have after your upper respiratory infection has not improved I would recommend following up for further evaluation. Please return for new or worsening chest pain, increasing shortness of breath, lightheadedness or passing out, new swelling of your extremities, persistent vomiting or other new or concerning changes. Prescriptions: No Action topiramate 50 mg tablet PO lacosamide 200 mg tablet PO lorazepam 0.5 MG tablet 0 mg PO Q6HP PRN (Reason: Seizure Activity) Qty: 0 olmesartan [Benicar] 20 mg tablet 20 mg PO QDAY Qty: 30 0RF estradiol [Estrace] 0.01 % (0.1 mg/gram) cream 1 g vaginal DAILY Qty: 42.5 3RF Rx Instructions: Place 1g of medication as directed once nightly at bedtime for one week, then decrease frequency to 3 times weekly for two weeks, then once weekly thereafter lamotrigine 100 mg tablet 100 mg PO BID Referrals: Wyatt Villavicencio MD [Primary Care Provider] - Stand Alone Forms: Patient Portal/API/Survey
[2024-09-18 16:33] LABS: Troponin I < 0.012 ng/mL (0.01-0.034)
== END 2024-09-18 16:53 | disposition home or self-care (01) ==
PROVIDERS: Emergency Provider Emergency Medicine; PCP Family Medicine
DX: R06.02 Shortness of breath (principal); R07.9 Chest pain, unspecified; R06.01 Orthopnea
CPT/HCPCS: 36415; 71045; 80053; 83605; 83880; 84484; 85025; 85610; 93005; 99283; 99284

== ENCOUNTER → 2024-09-20 16:48 | Outpatient (CLI) | payer OTHER, SELFPAY ==
--- NOTE | 2024-09-20 16:49 | DI.MG.S_ITS ---
BILATERAL DIGITAL SCREENING MAMMOGRAM 3D/2D WITH CAD: 09/20/2024 CLINICAL: Routine screening. Family history of breast cancer. Comparison is made to exam dated: 01/20/2023 mammogram - [facility]. The breasts are heterogeneously dense, which may obscure small masses (category c / 51-75% glandular tissue). Current study was also evaluated with a Computer Aided Detection (CAD) system. There is a biopsy clip in the right breast. No significant masses, calcifications, or other findings are seen in either breast. There has been no significant interval change. IMPRESSION: NEGATIVE There is no mammographic evidence of malignancy. A 1 year screening mammogram is recommended. Based on Tyrer-Cuzick model (a risk assessment model), the patient's lifetime risk is 27.6% and her 10 year risk is 8.6%. If a patient has an elevated risk, a more comprehensive evaluation should be considered and/or a referral to a genetic counselor. The [employer], [employer], and NCCN Guidelines advise the consideration of Breast MRI as an adjunct to screening mammography in patients whose Lifetime risk to develop breast cancer is 20% or higher. This exam was interpreted at Station ID: [id number]. NOTE: For mammograms, a report in lay terms will be sent to the patient. Approximately 15% of breast malignancies will not be visualized mammographically. In the management of a palpable breast mass, a negative mammogram must not discourage biopsy of a clinically suspicious lesion. Electronically Signed By: Ilya novak/jen:09/24/2024 14:10:12 copy to: JANI BRADY letter sent: Normal Exam ACR BI-RADS Category 1: Negative
== END ==
PROVIDERS: PCP Family Medicine; Referring Provider Obstetrics & Gynecology; Visit Provider Obstetrics & Gynecology
DX: Z12.31 Encounter for screening mammogram for malignant neoplasm of breast (principal); Z80.3 Family history of malignant neoplasm of breast; R92.333 Mammographic heterogeneous density, bilateral breasts
CPT/HCPCS: 77063; 77067

== ENCOUNTER → 2025-01-15 08:28 | Outpatient (CLI) | payer OTHER, SELFPAY | PROVIDERS: PCP Family Medicine; Visit Provider Obstetrics & Gynecology | DX: N94.89 Other specified conditions associated with female genital organs and menstrual cycle (principal) | CPT/HCPCS: 87086 ==